=== PATIENT | female | born 1970 | race Caucasian/White ===

== ENCOUNTER → 2019-01-27 | Outpatient (CLI) | payer OTHER | END | disposition home or self-care (01) | LOC: CARD 09:18 | PROVIDERS: ATTEND Family Medicine | DX: R00.2 Palpitations (principal); R94.31 Abnormal electrocardiogram [ECG] [EKG] | CPT/HCPCS: 93225; 93226 ==

== ENCOUNTER → 2019-02-04 | Outpatient (CLI) | payer OTHER | END | disposition home or self-care (01) | LOC: CFH 08:29 | PROVIDERS: ATTEND Family Medicine | DX: R00.2 Palpitations (principal); R94.31 Abnormal electrocardiogram [ECG] [EKG] | CPT/HCPCS: 78452; 93017; A9502 ==